=== PATIENT | female | born 1985 | race American Indian/Alaskan Native ===

== ENCOUNTER 2017-10-05 11:59 | Emergency (ER) | payer SELFPAY ==
--- NOTE | 2017-10-05 12:07 | ED PDOC ---
Arrival/HPI - General Time Seen by Provider: 10/05/17 12:05 Historian: Patient - History of Present Illness Narrative History of Present Illness (Text): 10/05/17 12:07 31 y/o female, no significant pmh, nkda, LMP 07/08/2017, , approx. 12 weeks , c/o lower pelvic pain with vaginal spotting started last night with no fall or trauma. Pt. stated that she wiped herself last night which she noted stain of blood, associated with lower pelvic pain, no fever or chills, no headache or night sweat, no rash, no numbness or tingling, no palpitation, no dizziness, no other medical or psychological complaints. Past Medical History - Provider Review Nursing Documentation Reviewed: Yes Family/Social History - Physician Review Nursing Documentation Reviewed: Yes Family/Social History: Unknown Family HX Allergies/Home Meds Allergies/Adverse Reactions: Allergies No Known Allergies Allergy (Verified 10/05/17 12:14) Home Medications: Home Meds Medication Instructions Recorded Confirmed Vit Calc,Iron,Folic 1 each PO DAILY 10/05/17 10/05/17 [ Vitamins] Review of Systems - Review of Systems Constitutional: absent: Fatigue, Fevers Eyes: absent: Vision Changes ENT: absent: Hearing Changes Respiratory: absent: SOB, Cough Cardiovascular: absent: Chest Pain Gastrointestinal: absent: Abdominal Pain, Diarrhea, Nausea, Vomiting Genitourinary Female: Vaginal Bleeding, Other (+pelvic pain). absent: Dysuria, Frequency, Hematuria, Urine Output Changes, Vaginal Discharge Skin: absent: Rash, Pruritis Psychiatric: absent: Anxiety, Depression, Suicidal Ideation Physical Exam Vital Signs Reviewed: Yes Vital Signs Temp Pulse Resp BP Pulse Ox 10/05/17 12:16 98.5 F 83 19 111/76 97 10/05/17 12:15 98.5 F 83 19 111/76 97 Temperature: Afebrile Blood Pressure: Normal Pulse: Regular Respiratory Rate: Normal Appearance: Positive for: Well-Appearing, Non-Toxic, Comfortable Pain Distress: Mild Mental Status: Positive for: Alert and Oriented X 3 - Systems Exam Head: Present: Atraumatic, Normocephalic Pupils: Present: PERRL Extroacular Muscles: Present: EOMI Conjunctiva: Present: Normal Mouth: Present: Moist Mucous Membranes Neck: Present: Normal Range of Motion Respiratory/Chest: Present: Clear to Auscultation, Good Air Exchange. No: Respiratory Distress, Accessory Muscle Use Cardiovascular: Present: Regular Rate and Rhythm, Normal S1, S2. 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 No: Vaginal Discharge, Vaginal Bleeding, Vaginal Lesions, Adenexal Tenderness, Adenexal Mass , Cervical Motion Tendernes, Odor Back: Present: Normal Inspection Upper Extremity: Present: Normal Inspection. No: Cyanosis, Edema Lower Extremity: Present: Normal Inspection. No: Edema Neurological: Present: GCS=15, CN II-XII Intact, Speech Normal Skin: Present: Warm, Dry, Normal Color. No: Rashes Psychiatric: Present: Alert, Oriented x 3, Normal Insight, Normal Concentration Medical Decision Making ED Course and Treatment: 10/05/17 12:22 -labs/ua/type and screen -Transvaginal sonogram -IVF/tylenol -Observe and reassess 10/05/17 15:40 -Transvaginal sonogram show: 1. There is complex echogenicity within the endocervical canal representing mucus/blood products in the patient's history of vaginal spotting. 2. IUP as described. 3. Right ovarian corpus luteum 2.2 cm. The heart motion at the rate of 154 beats per minute. Estimated gestational age calculated from [place] rump length is estimated to be 11 weeks 5 days. The estimated gestational age calculated from mean sac diameter is estimated to be 10 weeks 5 days. -Labs are non-significant -Blood type is O+ -Beta hcg 95742 -UA show +UTI -All labs and results discussed with the patient -Pt. has no active bleeding. No pain. -Discharge home with macrobid, tylenol, stay hydrated, bed rest, follow up with your own pmd and obgyn within 2 days, bed rest, leg elevation, avoid walking or standing excessively, no sexual intercourse until clear by obgyn. - Lab Interpretations Lab Results: 10/05/17 12:40 10/05/17 12:40 Lab Results 10/05/17 15:00: Urine Color Yellow, Urine Appearance Clear, Urine pH 6.0, Ur Specific [place] <= 1.005, Urine Protein Negative, Urine Glucose (UA) Negative, Urine Ketones Trace H, Urine Blood Small H, Urine Nitrate Negative, Urine Bilirubin Negative, Urine Urobilinogen 0.2, Ur Leukocyte Esterase Trace H, Urine RBC Pending, Urine WBC Pending 10/05/17 13:25: Blood Type Confirm O POSITIVE 10/05/17 12:40: Blood Type O POSITIVE, Antibody Screen Negative, BBK History Checked No verified bt 10/05/17 12:40: WBC 5.4, RBC 4.53, Hgb 13.6, Hct 39.7, MCV 87.6, MCH 30.0, MCHC 34.3, RDW 12.8, Plt Count 273, MPV 13.5 H, Gran % 56.7, Lymph % (Auto) 30.2, [place] % (Auto) 11.6 H, Eos % (Auto) 1.1 L, Baso % (Auto) 0.4, Gran # 3.04, Lymph # (Auto) 1.6, [place] # (Auto) 0.6, Eos # (Auto) 0.1, Baso # (Auto) 0.02 10/05/17 12:40: Beta HCG, Quant 22797.00 H 10/05/17 12:40: Sodium 138, Potassium 4.2, Chloride 106, Carbon Dioxide 19 L, Anion Gap 18, BUN 9, Creatinine 0.6 L, Est GFR ( Amer) > 60, Est GFR (Non -Af Amer) > 60, Random Glucose 77, Calcium 9.5, Total Bilirubin 0.9, AST 19, ALT 20, Alkaline Phosphatase 45, Total Protein 8.1, Albumin 4.3, Globulin 3.9, Albumin/Globulin Ratio 1.1 - RAD Interpretation Radiology Orders: 10/05/17 12:18 OB TRANSVAGINAL [US] Stat CLINICAL HISTORY: 31 years old, female; Pain; complicated by abdominal or pelvic pain; Lower; First trimester; Gestational age or lmp: 07/08/2017; ; Additional info: Vaginal spotting, approx. 12 weeks ? TECHNIQUE: Real-time transabdominal and transvaginal obstetrical ultrasound of the maternal pelvis and a first trimester with image documentation. Transvaginal imaging was used for better evaluation of the fetus and adnexa. 3 sets of ultrasound cine loop clips are submitted.Grayscale, color and spectral pulse Doppler images are submitted.A duplex/doppler ultrasound was performed specifically BOTH COLOR FLOW AND spectral Doppler analysis (waveforms) were performed and interpreted. COMPARISON: No relevant prior studies available. FINDINGS: Gestation: There is single intrauterine gestational sac with presence of pole The heart motion at the rate of 154 beats per minute. Estimated gestational age calculated from [place] rump length is estimated to be 11 weeks 5 days. The estimated gestational age calculated from mean sac diameter is estimated to be 10 weeks 5 days. Uterus/cervix: There is complex echogenicity within the endocervical canal representing mucus/blood products in the patient's history of vaginal spotting. The cervix is closed and measures 3.7 cm. Ovaries: The ovaries measurements are provided below. No mass. Right ovarian corpus luteum 2.2 cm. Free fluid: No free fluid. IMPRESSION: 1. There is complex echogenicity within the endocervical canal representing mucus/blood products in the patient's history of vaginal spotting. 2. IUP as described. 3. Right ovarian corpus luteum 2.2 cm. EXAM: US Duplex Arterial/Venous of the Pelvis, Complete CLINICAL HISTORY: 31 years old, female; Pain; complicated by abdominal or pelvic pain; Lower; First trimester; Gestational age or lmp: 07/08/2017; ; Additional info: Vaginal spotting, approx. 12 weeks ? TECHNIQUE: Real-time transvaginal pelvic ultrasound (complete) with image documentation. Transvaginal imaging was used for better evaluation of the endometrium and adnexa. Real-time duplex ultrasound scan of the arterial and venous flow of the pelvis with color Doppler flow and spectral waveform analysis. COMPARISON: No relevant prior studies available. FINDINGS: Uterus/cervix: There is an IUP as described in the report above. The gravid uterus measures 8.8 x 6.2 x 6.1 cm. Right ovary: The right ovarian corpus luteal cyst measuring 2.2 x 1.8 x 1.5 cm. The right ovary measures 3.1 x 2.3 x 2.5 cm. Duplex assessment demonstrates presence of color Doppler signal and spectral Doppler waveform in right ovary. No torsion. Left ovary: The left ovary measures 2.7 x 1.2 x 2.0 cm. Duplex assessment demonstrates presence of color Doppler signal and spectral Doppler waveform in left ovary. No torsion. Free fluid: No free fluid. Bladder: Empty bladder which cannot be evaluated with this probe. IMPRESSION: 1. The right ovarian corpus luteal cyst measuring 2.2 x 1.8 x 1.5 cm. no ovarian torsion. Dictated By: BRIANA JACK Dictated Date/Time: 10/05/171347 Signed By: BRIANA JACK MD Date Signed: [id number] Transcribed By: ZHENG Transcribe Date/Time : 10/05/171347 Pallet Stone Positioner: Radiologist - Medication Orders Current Medication Orders: Discontinued Medications Acetaminophen (Tylenol 325mg Tab) 650 mg PO STAT STA Stop: 10/05/17 12:20 Sodium Chloride (Sodium Chloride 0.9%) 1,000 mls @ 999 mls/hr IV .Q1H1M STA Stop: 10/05/17 13:18 - PA / ASL INTERPRETER / Resident Statement / has reviewed & agrees with the documentation as recorded. Disposition/Present on Arrival - Present on Arrival Any Indicators Present on Arrival: No History of DVT/PE: No History of Uncontrolled Diabetes: No Urinary Catheter: No History of Decub. Ulcer: No - Disposition Have Diagnosis and Disposition been Completed?: Yes Diagnosis: , Vaginal bleeding, UTI (urinary tract infection) Disposition: HOME/ ROUTINE Disposition Time: 15:41 Patient Plan: Discharge Patient Problems: Current Active Problems Problem Status Onset Acute Vaginal bleeding Acute Condition: IMPROVED Additional Instructions: -Discharge home with macrobid, tylenol, stay hydrated, bed rest, follow up with your own pmd and obgyn within 2 days, bed rest, leg elevation, avoid walking or standing excessively, no sexual intercourse until clear by obgyn. Prescriptions: Acetaminophen [Tylenol] 2 cap PO QID PRN #30 capsule PRN Reason: Other Nitrofurantoin Macrocrystals [Macrobid] 100 mg PO BID #14 cap Referrals: Lona Harding MD [Primary Care Provider] - Follow up with primary Kevan Pérez [Medical Doctor] - Follow up with primary Forms: WORK NOTE
[2017-10-05 12:14] VITALS: BMI 35.5
[2017-10-05] MEDS ORDERED: Sodium Chloride 0.9% 1,000 ML IV STA (12:18)
[2017-10-05 13:01] LABS: BASO # 0.02 K/mm3 (0.0-2.0); BASO % 0.4 % (0.0-3.0); EOS # 0.1 (0.0-0.7); EOS % 1.1 % (1.5-5.0); GRAN # 3.04 (1.4-6.5); GRAN % 56.7 % (50.0-68.0); HEMOGLOBIN 13.6 g/dL (12.0-16.0); LYMPH # 1.6 (1.2-3.4); LYMPH % 30.2 % (22.0-35.0); MEAN CELL VOLUME 87.6 fl (80.0-105.0); MEAN CORPUSCULAR HGB CONC 34.3 g/dl (31.0-37.0); MEAN PLATELET VOLUME 13.5 fl (7.0-11.0); MONO # 0.6 (0.1-0.6); MONO % 11.6 % (1.0-6.0); RBC 4.53 10^6/uL (3.5-6.1); RED CELL DISTRIBUTION WIDTH 12.8 % (11.5-14.5); WHITE BLOOD COUNT 5.4 10^3/ul (4.5-11.0)
[2017-10-05 13:14] LABS: ALB/GLOB RATIO 1.1 (1.1-1.8); ALBUMIN 4.3 g/dL (3.0-4.8); ALT/SGPT 20 U/L (7-56); AST/SGOT 19 U/L (14-36); BLOOD UREA NITROGEN 9 mg/dL (7-21); CALCIUM 9.5 mg/dL (8.4-10.5); GFR AFRICAN-AMERICAN > 60; GFR NON-AFRICAN AMERICAN > 60
--- NOTE | 2017-10-05 13:49 | US ---
EXAM: US First Trimester, Transabdominal US , Transvaginal CLINICAL HISTORY: 31 years old, female; Pain; complicated by abdominal or pelvic pain; Lower; First trimester; Gestational age or lmp: 07/08/2017; ; Additional info: Vaginal spotting, approx. 12 weeks ? TECHNIQUE: Real-time transabdominal and transvaginal obstetrical ultrasound of the maternal pelvis and a first trimester with image documentation. Transvaginal imaging was used for better evaluation of the fetus and adnexa. 3 sets of ultrasound cine loop clips are submitted.Grayscale, color and spectral pulse Doppler images are submitted.A duplex/doppler ultrasound was performed specifically BOTH COLOR FLOW AND spectral Doppler analysis (waveforms) were performed and interpreted. COMPARISON: No relevant prior studies available. FINDINGS: Gestation: There is single intrauterine gestational sac with presence of pole The heart motion at the rate of 154 beats per minute. Estimated gestational age calculated from [place] rump length is estimated to be 11 weeks 5 days. The estimated gestational age calculated from mean sac diameter is estimated to be 10 weeks 5 days. Uterus/cervix: There is complex echogenicity within the endocervical canal representing mucus/blood products in the patient's history of vaginal spotting. The cervix is closed and measures 3.7 cm. Ovaries: The ovaries measurements are provided below. No mass. Right ovarian corpus luteum 2.2 cm. Free fluid: No free fluid. IMPRESSION: 1. There is complex echogenicity within the endocervical canal representing mucus/blood products in the patient's history of vaginal spotting. 2. IUP as described. 3. Right ovarian corpus luteum 2.2 cm. EXAM: US Duplex Arterial/Venous of the Pelvis, Complete CLINICAL HISTORY: 31 years old, female; Pain; complicated by abdominal or pelvic pain; Lower; First trimester; Gestational age or lmp: 07/08/2017; ; Additional info: Vaginal spotting, approx. 12 weeks ? TECHNIQUE: Real-time transvaginal pelvic ultrasound (complete) with image documentation. Transvaginal imaging was used for better evaluation of the endometrium and adnexa. Real-time duplex ultrasound scan of the arterial and venous flow of the pelvis with color Doppler flow and spectral waveform analysis. COMPARISON: No relevant prior studies available. FINDINGS: Uterus/cervix: There is an IUP as described in the report above. The gravid uterus measures 8.8 x 6.2 x 6.1 cm. Right ovary: The right ovarian corpus luteal cyst measuring 2.2 x 1.8 x 1.5 cm. The right ovary measures 3.1 x 2.3 x 2.5 cm. Duplex assessment demonstrates presence of color Doppler signal and spectral Doppler waveform in right ovary. No torsion. Left ovary: The left ovary measures 2.7 x 1.2 x 2.0 cm. Duplex assessment demonstrates presence of color Doppler signal and spectral Doppler waveform in left ovary. No torsion. Free fluid: No free fluid. Bladder: Empty bladder which cannot be evaluated with this probe. IMPRESSION: 1. The right ovarian corpus luteal cyst measuring 2.2 x 1.8 x 1.5 cm. no ovarian torsion.
[2017-10-05 15:27] LABS: URINE BILIRUBIN NEGATIVE (NEGATIVE); URINE BLOOD SMALL (NEGATIVE); URINE GLUCOSE (UA) NEGATIVE (NEGATIVE); URINE LEUKOCYTE ESTERASE TRACE Leu/uL (NEGATIVE); URINE PROTEIN NEGATIVE mg/dL (<30 mg/dL); URINE UROBILINOGEN 0.2 E.U./dL (<1 E.U./dL)
[2017-10-05 15:31] LABS: URINE APPEARANCE CLEAR (CLEAR); URINE COLOR YELLOW (YELLOW)
[2017-10-05 15:57] VITALS: BP 120/79; PULSE 78; RESP 18; TEMP 98.9; O2SAT 99
[2017-10-05 16:07] LABS: URINE EPITHELIAL CELLS 0 - 2 /hpf (0-5); URINE WBC 0 - 2 /hpf (0-6)
== END 2017-10-05 15:57 | disposition home or self-care (01) ==
LOC: ED 11:59
DX: O46.91 Antepartum hemorrhage, unspecified, first trimester (principal); O23.41 Unspecified infection of urinary tract in pregnancy, first trimester; Z3A.11 11 weeks gestation of pregnancy